=== PATIENT | male | born 1985 | race Asian ===

== ENCOUNTER 2017-11-26 13:53 | Emergency (ER) | payer MEDICAID, MEDICARE ==
[~2017-11-26] VITALS: Ht 162.6 cm; Wt 79.0 kg
[2017-11-26] MEDS ORDERED: TETanus/Pertussis (Acell)/Diphther VAC/PF (Tdap-Adult) 0.5ml syringe IM ONE (14:25)
[2017-11-26] MEDS ORDERED: LIDOcaine 1%/PF (10mg/ml) 5ml vial IJ ONE ×2 (14:25→14:55)
[2017-11-26] MEDS ORDERED: HYDROcodone/acetaminophen 5mg/325mg tablet PO ONE (14:25)
[2017-11-26] MEDS ORDERED: LIDOcaine 1% 30ml preserv. free vial IJ ONE (14:45)
[2017-11-26] MEDS ORDERED: HYDR-569 PO (15:54)
[2017-11-26] MEDS ORDERED: CEPH-571 PO (15:54)
[2017-11-26 16:07] VITALS: BP 125/72
== END 2017-11-26 16:18 | disposition home or self-care (01) ==
LOC: ER 13:54
DX: S62.631B Displaced fracture of distal phalanx of left index finger, initial encounter for open fracture (principal); Z79.899 Other long term (current) drug therapy; X58.XXXA Exposure to other specified factors, initial encounter; Y93.89 Activity, other specified; Y92.89 Other specified places as the place of occurrence of the external cause; Y99.8 Other external cause status
CPT/HCPCS: 29130; 73140; 90471; 90715; 99284; A6222; A6255; A6449; J2001; J3490

== ENCOUNTER 2017-11-28 10:33 | Emergency (ER) | payer OTHER ==
[~2017-11-28] VITALS: Ht 162.6 cm; Wt 81.8 kg
[~2017-11-28 10:33] MED LIST: CEPH-571 PO; HYDR-569 PO
[2017-11-28 10:38] VITALS: BP 115/68
== END 2017-11-28 11:50 | disposition home or self-care (01) ==
LOC: ER 10:33
DX: Z48.01 Encounter for change or removal of surgical wound dressing (principal)
CPT/HCPCS: 29130; 99283; A6222; A6255

== ENCOUNTER 2017-11-30 10:14 | Emergency (ER) | payer OTHER ==
[~2017-11-30] VITALS: Ht 565.3 cm; Wt 81.8 kg
[2017-11-30 10:29] VITALS: BP 113/80
== END 2017-11-30 11:48 | disposition home or self-care (01) ==
LOC: ER 10:14
DX: S61.211D Laceration without foreign body of left index finger without damage to nail, subsequent encounter (principal); Z79.899 Other long term (current) drug therapy; X58.XXXD Exposure to other specified factors, subsequent encounter
CPT/HCPCS: 29130; 99283; A6222

== ENCOUNTER 2017-12-03 08:34 | Outpatient (CLI) | payer OTHER ==
[2017-12-03 08:45] VITALS: BP 111/69
[2017-12-07 09:15] VITALS: BP 111/69
== END 2017-12-03 09:28 | disposition home or self-care (01) ==
LOC: ORTHO 08:34
PROVIDERS: ATTEND Nurse Practitioner Family
DX: S62.601B Fracture of unspecified phalanx of left index finger, initial encounter for open fracture (principal); K21.9 Gastro-esophageal reflux disease without esophagitis; F32.9 Major depressive disorder, single episode, unspecified; F17.210 Nicotine dependence, cigarettes, uncomplicated; X58.XXXA Exposure to other specified factors, initial encounter; Y93.89 Activity, other specified; Y92.89 Other specified places as the place of occurrence of the external cause; Y99.8 Other external cause status
CPT/HCPCS: 99215

== ENCOUNTER 2017-12-10 09:13 | Outpatient (CLI) | payer OTHER ==
[2017-12-10 09:14] VITALS: BP 109/69
== END 2017-12-10 10:02 | disposition home or self-care (01) ==
LOC: ORTHO 09:13
PROVIDERS: ATTEND Nurse Practitioner Family
DX: S62.631G Displaced fracture of distal phalanx of left index finger, subsequent encounter for fracture with delayed healing (principal); F17.210 Nicotine dependence, cigarettes, uncomplicated; Z88.8 Allergy status to other drugs, medicaments and biological substances; X58.XXXD Exposure to other specified factors, subsequent encounter
CPT/HCPCS: 73140; 99213; A6449

== ENCOUNTER 2017-12-18 09:41 | Outpatient (CLI) | payer OTHER | END 2017-12-18 10:25 | disposition home or self-care (01) | LOC: ORTHO 09:41 | PROVIDERS: ATTEND Nurse Practitioner Family | DX: S62.609D Fracture of unspecified phalanx of unspecified finger, subsequent encounter for fracture with routine healing (principal); F17.210 Nicotine dependence, cigarettes, uncomplicated; F20.9 Schizophrenia, unspecified; Z88.8 Allergy status to other drugs, medicaments and biological substances; X58.XXXD Exposure to other specified factors, subsequent encounter | CPT/HCPCS: 99213 ==

== ENCOUNTER 2018-01-08 09:39 | Outpatient (CLI) | payer OTHER | END 2018-01-08 10:25 | disposition home or self-care (01) | LOC: ORTHO 09:39 | PROVIDERS: ATTEND Nurse Practitioner Family | DX: S62.601 Fracture of unspecified phalanx of left index finger (principal); F17.210 Nicotine dependence, cigarettes, uncomplicated; Z88.8 Allergy status to other drugs, medicaments and biological substances; X58.XXXD Exposure to other specified factors, subsequent encounter | CPT/HCPCS: 73140; 99213 ==

== ENCOUNTER 2018-02-05 11:28 | Outpatient (CLI) | payer OTHER ==
[2018-02-05 11:24] VITALS: BP 133/78
== END 2018-02-05 11:53 | disposition home or self-care (01) ==
LOC: ORTHO 11:28
PROVIDERS: ATTEND Nurse Practitioner Family
DX: S62.601D Fracture of unspecified phalanx of left index finger, subsequent encounter for fracture with routine healing (principal); F20.9 Schizophrenia, unspecified; Z91.048 Other nonmedicinal substance allergy status; X58.XXXD Exposure to other specified factors, subsequent encounter
CPT/HCPCS: 73140; 99213

== ENCOUNTER 2018-02-26 08:57 | Outpatient (CLI) | payer OTHER ==
[2018-02-26 08:54] VITALS: BP 122/74
== END 2018-02-26 09:15 | disposition home or self-care (01) ==
LOC: ORTHO 08:57
PROVIDERS: ATTEND Nurse Practitioner Family
DX: S62.601D Fracture of unspecified phalanx of left index finger, subsequent encounter for fracture with routine healing (principal); F17.210 Nicotine dependence, cigarettes, uncomplicated; F20.9 Schizophrenia, unspecified; Z88.8 Allergy status to other drugs, medicaments and biological substances; X58.XXXD Exposure to other specified factors, subsequent encounter
CPT/HCPCS: 73130; 99213

== ENCOUNTER 2019-06-10 18:22 | Emergency (ER) | payer MEDICARE, MEDICAID ==
[~2019-06-10] VITALS: Ht 162.6 cm; Wt 81.8 kg
[~2019-06-10 18:22] MED LIST changes: +HYDR-4383 PO; -HYDR-569 PO
[2019-06-10 19:26] LABS: BASOPHILS % (AUTO) 0.2 % (0-1); EOSINOPHILS % (AUTO) 0 % (0-6); HEMATOCRIT 45.8 % (42.0-52.0); HEMOGLOBIN 15.9 g/dl (14.0-17.9); LYMPHOCYTES # (AUTO) 1.7 X10'3 (1.1-4.8); LYMPHOCYTES % (AUTO) 8.2 % (21-51); MEAN CORPUSCULAR HEMOGLOBIN 30.4 PG (27.0-31.0); MEAN CORPUSCULAR HGB CONC 34.6 g/dL (33.0-36.5); MEAN CORPUSCULAR VOLUME 87.6 FL (78-98); MEAN PLATELET VOLUME 7.6 FL (7.4-10.4); MONOCYTES # (AUTO) 2.9 X10'3 (0-0.9); MONOCYTES % (AUTO) 14.4 % (2-12); NEUTROPHILS # (AUTO) 15.6 X10'3 (1.8-7.7); NEUTROPHILS % (AUTO) 77.2 % (42-75); PLATELET COUNT 301 X10'3 (140-440); RED BLOOD COUNT 5.23 X10'6 (4.70-6.10); RED CELL DISTRIBUTION WIDTH 12.2 % (11.5-14.5); WHITE BLOOD COUNT 20.2 X10'3 (4.5-11.0)
[2019-06-10 19:41] LABS: ALANINE AMINOTRANSFERASE 56 U/L (12-78); ALBUMIN 3.7 G/DL (3.4-5.0); ALBUMIN/GLOBULIN RATIO 0.7 (1.1-1.5); ALKALINE PHOSPHATASE 82 IU/L (46-116); ANION GAP 12 (8-16); ASPARTATE AMINO TRANSFERASE 24 U/L (10-37); BILIRUBIN,TOTAL 1.4 MG/DL (0.1-1.0); BLOOD UREA NITROGEN 20 MG/DL (7-18); BUN/CREATININE RATIO 10.4 (5.4-32.0); CALCIUM 9.6 MG/DL (8.5-10.1); CHLORIDE 91 MMOL/L (99-107); CREATININE 1.93 MG/DL (0.60-1.10); GLUCOSE 117 MG/DL (70-104); POTASSIUM 3.7 MMOL/L (3.5-5.1); SODIUM 128 MMOL/L (135-145); TOTAL CARBON DIOXIDE 25.4 MMOL/L (24-32); TOTAL PROTEIN 9.1 G/DL (6.4-8.2); eGFR 40 ML/MIN
[2019-06-10] MEDS ORDERED: acetaminophen 325mg tablet PO STA (20:10)
[2019-06-10] MEDS ORDERED: ondansetron/PF 4mg/2ml inj IV ONE (20:10)
[2019-06-10] MEDS ORDERED: normal saline 1000ML IV soln IV ONE (20:10)
[2019-06-10 20:32] LABS: BANDS% (MANUAL) 3 % (0-10); LYMPHOCYTES % (MANUAL) 6 % (21-51); MONOCYTES % (MANUAL) 10 % (2-12); NEUTROPHILS % (MANUAL) 79 % (42-75); PLATELET ESTIMATE NORMAL; REACTIVE LYMPHOCYTES % 2 % (0-0); TOTAL CELLS COUNTED 100
[2019-06-10] MEDS ORDERED: ONDA4TAB12 PO (20:49)
[2019-06-10 21:35] VITALS: BP 122/87
== END 2019-06-10 21:34 | disposition home or self-care (01) ==
LOC: ER 18:23
DX: E86.0 Dehydration (principal); E87.1 Hypo-osmolality and hyponatremia; N17.9 Acute kidney failure, unspecified; K21.9 Gastro-esophageal reflux disease without esophagitis; G47.30 Sleep apnea, unspecified; F20.9 Schizophrenia, unspecified; F32.9 Major depressive disorder, single episode, unspecified; Z87.891 Personal history of nicotine dependence; Z88.8 Allergy status to other drugs, medicaments and biological substances; Z79.899 Other long term (current) drug therapy
CPT/HCPCS: 36415; 71045; 80053; 85025; 87502; 87503; 96361; 96374; 99284; J2405; J7030